=== PATIENT | male | born 1960 | race American Indian/Alaskan Native ===

== ENCOUNTER 2018-03-24 08:00 | Day surgery (SDC) | payer MEDICAID ==
[~2018-03-24 08:00] MED LIST: NACL 0.9% 1000 ML 1,000 ML IV SCH
--- NOTE | 2018-03-24 08:47 | Anesthesia Day of Surgery ---
Anesthesia Day of Surgery - Day of Surgery Patient Examined: Yes Patient H&P Reviewed: Yes Patient is NPO: Yes
--- NOTE | 2018-03-24 08:47 | Anesthesia Consultation ---
Anesthesia Consult and Med Hx Date of service: 03/24/18 - Airway Anesthetic Teeth Evaluation: Poor (loose tooth posterior left) ROM Head & Neck: Adequate Mental/Hyoid Distance: Adequate Mallampati Class: Class II Intubation Access Assessment: Probably Good - Pulmonary Exam CTA: Yes - Cardiac Exam Cardiac Exam: RRR - Pre-Operative Health Status ASA Pre-Surgery Classification: ASA3 Proposed Anesthetic Plan: MAC - Pulmonary Hx Smoking: Yes COPD: Yes (no home O2) - Cardiovascular System Hx Hypertension: Yes - Central Nervous System CVA: Yes - Endocrine Hx Liver Disease: Yes - Other Systems Hx Substance Use: Yes
[2018-03-24] MEDS ORDERED: DIPRIVAN 10 MG/ML IV ONE ×2 (09:02)
--- NOTE | 2018-03-24 10:50 | Short Stay Summary ---
Short Stay Documentation Date of service: 03/24/18 - History H&P: obtained from office - Allergies and Medications Current Medications: Allergies Penicillins Allergy (Verified 08/06/14 06:33) Angioedema Home Medications Medication Instructions Recorded Confirmed Last Taken Type Albuterol Sulfate [Ventolin HFA] 2 puff IH Q4H PRN #1 hfa.aer.ad 08/07/14 Unknown Rx Fluticasone/Salmeterol [Advair 1 puff IH BID #1 disk.w.dev 08/07/14 03/21/18 Unknown Rx Diskus 250-50 mcg] Ipratropium (Nf) [Atrovent HFA 2 puff IH Q6HR PRN #1 inha 08/07/14 03/21/18 Unknown Rx 17MCG/PUFF] amLODIPine [Norvasc] 10 mg PO DAILY #30 tablet 08/07/14 03/21/18 Unknown Rx ALBUTEROL Inhaler [Proair] 2 puff IH QID PRN 03/21/18 03/21/18 Unknown History Acetaminophen [Tylenol] 650 mg PO Q6HR PRN 03/21/18 03/21/18 Unknown History Benzonatate [Tessalon Perle] 100 mg PO TID 03/21/18 03/21/18 Unknown History Carvedilol 6.25 mg PO BID 03/21/18 03/21/18 Unknown History Cephalexin 500 mg PO TID 03/21/18 03/21/18 Unknown History Cyclobenzaprine HCl [Flexeril 5 MG 5 mg PO TID 03/21/18 03/21/18 Unknown History TAB] Furosemide [Lasix] 20 mg PO QDAY 03/21/18 03/21/18 Unknown History Ipratropium (Nf) [Atrovent] 0.02 puff IH Q6HR PRN 03/21/18 03/21/18 Unknown History Losartan [Cozaar] 1 tab PO DAILY 03/21/18 03/21/18 Unknown History Meloxicam [Mobic] 7.5 mg PO DAILY 03/21/18 03/21/18 Unknown History Naproxen [Naprosyn] 500 mg PO BID 03/21/18 03/21/18 Unknown History Ranitidine HCl [Zantac 300 MG TAB] 300 mg PO QPM 03/21/18 03/21/18 Unknown History Tamsulosin [Flomax] 0.4 mg PO QDAY 03/21/18 03/21/18 Unknown History Active Medications Sodium Chloride (Nacl 0.9% 1000 Ml) 1,000 mls @ 50 mls/hr IV DIRECT JOSEY Last Admin: 03/24/18 09:58 Dose: 50 mls/hr - Brief post op/procedure progress note Date of procedure: 03/24/18 Findings: see dictated report Estimated blood loss: none Pathology: list (antral biopsies for h.pylori) Specimen disposition: to lab Condition: stable - Disposition Condition at discharge: Good Disposition: DC-01 TO HOME OR SELFCARE - Discharge Diagnoses (1) Epigastric pain Status: Acute (2) Colon cancer screening Status: Acute Short Stay Discharge Plan Activity: other (no driving forf 24 hours) Weight Bearing Status: Weight Bear as Tolerated Follow up with: SANDY HERNANDEZ MD [Primary Care Provider] - 7 Days
--- NOTE | 2018-03-24 10:55 | Operative Report ---
Operative Report Operative Report: Date of procedure: 03/24/2018 Preprocedure diagnosis: Colon cancer screening Post procedure diagnosis: Normal study Procedure: Colonoscopy to the cecum Endoscopist: Dr. Moyer Anesthesia: Monitored anesthesia care per anesthesia department Estimated blood loss: 0 Medications: Monitored anesthesia care. See separate report by anesthesia for details. After careful discussion of the nature and purpose of the procedure as well as details of the technique risks benefits and alternatives the patient gave consent. Please see recent history and physical from the office. The patient was placed in the left lateral decubitus position and medicated per anesthesia. A rectal exam was performed sphincter tone was normal there were no masses palpable. The [employer] 570 scope was passed transanally and advanced under continuous direct vision without difficulty to the cecum. The colon was well prepared. The cecum was normal. The ascending colon was normal and on forward and retroflexed views. The transverse colon, descending colon, and sigmoid colon were normal. The rectum was normal on forward and retroflexed views. The procedure was well-tolerated overall and the patient was observed in recovery. Conclusions: Normal colonoscopy to the cecum. Plan: Repeat colonoscopy in 10 years, sooner if clinically indicated. Signed electronically: Praveen Moyer M.D.
--- NOTE | 2018-03-24 11:00 | Operative Report ---
Operative Report Operative Report: Date of procedure: 03/24/2018 Procedure:. Esophagogastroduodenoscopy with biopsies of the antrum for H. pylori. Preprocedure diagnosis: Epigastric pain Post procedure diagnosis: Multiple cratered duodenal bulb ulcers. Duodenal bulb deformity. Erosive antral gastritis. Hiatal hernia. Endoscopist: Dr. Moyer Anesthesia: Monitored anesthesia care per anesthesia department Medications: Propofol per anesthesia. Estimated blood loss: 0 After careful discussion of the nature and purpose of the procedure as well as details the technique risks benefits and alternatives consent was obtained. The patient was placed in the left lateral decubitus position and medicated per anesthesia. The tip of the [employer] 570 video scope was passed per orum under direct vision into the esophagus and advanced into the stomach and descending duodenum. The descending duodenum was normal. Duodenal bulb revealed deformity and multiple cratered ulcers from meters to 1 cm in size. The pylorus was symmetrical and normal. The scope was withdrawn into the stomach and the stomach then gently insufflated with air. The antrum revealed multiple punctate erosions. Biopsies were taken for H. pylori testing. The stomach was further insufflated and the scope was then retroflexed and partially withdrawn. The cardia, fundus, and body of the stomach were within normal limits and easily distensible.The scope was then withdrawn in the forward position. The esophagogastric junction was at 40 cm. A small hiatus hernia was present.. The esophageal body was normal throughout. The procedure was was well tolerated and the patient was observed in recovery. Impressions: Multiple cratered duodenal bulb ulcers. Erosive antral gastritis. Hiatal hernia. Plan: Begin omeprazole 40 mg daily. Discontinue all nonsteroidal anti- inflammatory medications. Await pathology. Office follow-up in 6 weeks. The patient will call in the interim regarding the pathology to treat H. pylori if present. Electronically signed: Praveen Moyer MD
[2018-03-24 11:40] VITALS: BP 148/92
== END 2018-03-24 11:50 | disposition home or self-care (01) ==
LOC: GIO 08:00
PROVIDERS: ATTEND Internal Medicine Gastroenterology
DX: Z12.11 Encounter for screening for malignant neoplasm of colon (principal); K29.50 Unspecified chronic gastritis without bleeding; B96.81 Helicobacter pylori [H. pylori] as the cause of diseases classified elsewhere; K26.9 Duodenal ulcer, unspecified as acute or chronic, without hemorrhage or perforation; K44.9 Diaphragmatic hernia without obstruction or gangrene; K21.9 Gastro-esophageal reflux disease without esophagitis; B19.20 Unspecified viral hepatitis C without hepatic coma; I11.0 Hypertensive heart disease with heart failure; I50.9 Heart failure, unspecified; J44.9 Chronic obstructive pulmonary disease, unspecified; Z87.891 Personal history of nicotine dependence; Z88.0 Allergy status to penicillin; Z95.810 Presence of automatic (implantable) cardiac defibrillator; Z98.890 Other specified postprocedural states; Z86.73 Personal history of transient ischemic attack (TIA), and cerebral infarction without residual deficits
CPT/HCPCS: 43239; 45378; 88305; 88342; J2704; J7030

== ENCOUNTER 2019-03-01 14:53 | Inpatient (IN) | payer MEDICAID, OTHER ==
[2019-03-01] MEDS ORDERED: ASPIRIN PO ONE (15:31)
[2019-03-01 15:53] LABS: Basophils # (Auto) 0.1 K/mm3 (0.0-0.1); Basophils % (Auto) 0.7 % (0.0-1.8); Eosinophils # (Auto) 0.1 K/mm3 (0.0-0.4); Eosinophils % (Auto) 1.9 % (0.0-4.3); Hematocrit 39.8 % (35.5-45.6); Hemoglobin 13.7 gm/dl (11.8-15.2); Lymphocytes # (Auto) 1.6 K/mm3 (1.2-5.4); Lymphocytes % (Auto) 21.8 % (13.4-35.0); Mean Corpuscular HGB Conc 34 % (32-34); Mean Corpuscular Volume 91 fl (84-94); Monocytes # (Auto) 0.7 K/mm3 (0.0-0.8); Monocytes % (Auto) 9.5 % (0.0-7.3); Platelet Count 189 K/mm3 (140-440); Red Blood Count 4.36 M/mm3 (3.65-5.03); Red Cell Distribution Width 13.8 % (13.2-15.2)
[2019-03-01 16:04] LABS: BUN/Creatinine Ratio 16; Blood Urea Nitrogen 22 mg/dL (9-20); Calcium 8.3 mg/dL (8.4-10.2); Hemolysis Index 159
--- NOTE | 2019-03-01 16:05 | XRay Report ---
PROCEDURE: XR CHEST 1V AP TECHNIQUE: Chest radiograph single view. HISTORY: Chest Pain COMPARISONS: None . FINDINGS: Heart: Normal. Mediastinum/Vessels: Normal. Lungs/Pleural space: No infiltrate, effusion, or pneumothorax. Bony thorax: No acute osseous abnormality. Life support devices: Left AICD. IMPRESSION: No radiographic evidence of acute cardiopulmonary abnormality. This document is electronically signed by Sheri Barreto MD., March 01 2019 04:03:21 PM ET
--- NOTE | 2019-03-01 17:11 | Emergency Department Report ---
HPI - General Chief Complaint: Chest Pain Time Seen by Provider: 03/01/19 16:49 - HPI HPI: Room 8 The patient is a 59-year-old male presenting with a chief complaint of dizziness and chest pain. Patient states his intermittent left-sided chest pain rating to his left shoulder and back since yesterday. Patient described the pain as sharp in nature associated with shortness of breath, diaphoresis and nausea without vomiting. The patient states when he awakened this morning he felt somewhat dizzy. The patient states he has a heart monitor and received a call from his order administrator today requesting him to come into the office for evaluation. Yanira mclaughlin states some of his family members got into an altercation today prompting him to call police. The patient was brought in to the ED in police custody as he has an outstanding warrant Location: Chest Duration: [See above] Quality: Sharp Severity: [See above] Modifying factors: [see above] Context: [see above] Mode of transportation: [not driving] ED Past Medical Hx - Past Medical History Previous Medical History?: Yes Hx Hypertension: Yes Hx CVA: Yes Hx Congestive Heart Failure: Yes Hx GERD: Yes (GERD) Hx Liver Disease: Yes Hx COPD: Yes (no home O2) Additional medical history: pancreatitis / fibrosis of liver - Surgical History Past Surgical History?: Yes Hx Internal Defibrillator: Yes Hx Cholecystectomy: Yes - Family History Family history: no significant - Social History Smoking Status: Former Smoker (none 2 years) Substance Use Type: None (denies illicit drug use) - Medications Home Medications: Home Medications Medication Instructions Recorded Confirmed Last Taken Type Albuterol Sulfate [Ventolin HFA] 2 puff IH Q4H PRN #1 hfa.aer.ad 08/07/14 03/21/18 Unknown Rx Fluticasone/Salmeterol [Advair 1 puff IH BID #1 disk.w.dev 08/07/14 03/21/18 Unknown Rx Diskus 250-50 mcg] Ipratropium (Nf) [Atrovent HFA 2 puff IH Q6HR PRN #1 inha 08/07/14 03/21/18 U nknown Rx 17MCG/PUFF] amLODIPine [Norvasc] 10 mg PO DAILY #30 tablet 08/07/14 03/21/18 Unknown Rx ALBUTEROL Inhaler (OR & NICU) 2 puff IH QID PRN 03/21/18 03/21/18 Unknown History [ProAir HFA Inhaler] Acetaminophen [Acetaminophen TAB] 650 mg PO Q6HR PRN 03/21/18 03/21/18 Unknown History Benzonatate [Tessalon Perle] 100 mg PO TID 03/21/18 03/21/18 Unknown History Carvedilol 6.25 mg PO BID 03/21/18 03/21/18 Unknown History Cyclobenzaprine HCl [Flexeril 5 MG 5 mg PO TID 03/21/18 03/21/18 Unknown History TAB] Furosemide [Lasix TAB] 20 mg PO QDAY 03/21/18 03/21/18 Unknown History Ipratropium (Nf) [Atrovent HFA 0.02 puff IH Q6HR PRN 03/21/18 03/21/18 Unknown History 17MCG/PUFF] Losartan [Cozaar] 1 tab PO DAILY 03/21/18 03/21/18 Unknown History Tamsulosin [Flomax] 0.4 mg PO QDAY 03/21/18 03/21/18 Unknown History cephALEXin [Cephalexin] 500 mg PO TID 03/21/18 03/21/18 Unknown History ED Review of Systems ROS: Stated complaint: CHEST PAIN Other details as noted in HPI Constitutional: diaphoresis Eyes: denies: eye pain ENT: denies: throat pain Respiratory: shortness of breath Cardiovascular: chest pain Endocrine: no symptoms reported Gastrointestinal: nausea. denies: vomiting Genitourinary: denies: dysuria Musculoskeletal: denies: back pain Neurological: other (dizziness). denies: headache Physical Exam - Physical Exam Vital Signs: Vital Signs 03/01/19 15:30 Pulse Rate 92 H Respiratory 18 Rate Blood Pressure 109/73 O2 Sat by Pulse 99 Oximetry Physical Exam: GENERAL: The patient is well-developed well-nourished male lying on stretcher not appear to be in acute distress. [] HEENT: Normocephalic. Atraumatic. Extraocular motions are intact. Patient has moist mucous membranes. NECK: Supple. Trachea midline CHEST/LUNGS: Clear to auscultation. There is no respiratory distress noted. HEART/CARDIOVASCULAR: Regular. There is no tachycardia. There is no gallop rub or murmur. ABDOMEN: Abdomen is soft, nontender. Patient has normal bowel sounds. There is no abdominal distention. SKIN: There is no rash. There is no edema. There is no diaphoresis. NEURO: The patient is awake, alert, and oriented. The patient is cooperative. The patient has normal speech MUSCULOSKELETAL: There is no evidence of acute injury. ED Course Vital Signs 03/01/19 15:30 Pulse Rate 92 H Respiratory 18 Rate Blood Pressure 109/73 O2 Sat by Pulse 99 Oximetry ED Medical Decision Making - Lab Data Result diagrams: 03/01/19 15:34 03/01/19 15:34 - EKG Data -: EKG Interpreted by Me EKG shows normal: sinus rhythm Rate: normal - EKG Data When compared to previous EKG there are: previous EKG unavailable Interpretation: other (no ischemic changes seen) - Radiology Data Radiology results: report reviewed (chest x-ray), image reviewed (chest x-ray) interpreted by me: Chest x-ray-no focal infiltrates, no pneumothorax [facility] [address] [place] [address] XRay Report Signed Patient: VERNELL WU MR#: [id number] : 1960 Acct:[id number] Age/Sex: 59 / M ADM Date: 03/01/19 Loc: ED Attending Dr: Ordering Physician: GIOVANNA BAZZI MD Date of Service: 03/01/19 Procedure(s): XR chest 1V ap Accession Number(s): [id number] cc: GIOVANNA BAZZI MD Fluoro Time In Minutes: PROCEDURE: XR CHEST 1V AP TECHNIQUE: Chest radiograph single view. HISTORY: Chest Pain COMPARISONS: None . FINDINGS: Heart: Normal. Mediastinum/Vessels: Normal. Lungs/Pleural space: No infiltrate, effusion, or pneumothorax. Bony thorax: No acute osseous abnormality. Life support devices: Left AICD. IMPRESSION: No radiographic evidence of acute cardiopulmonary abnormality. This document is electronically signed by Sheri Barreto MD., March 01 2019 04:03:21 PM ET Transcribed By: [facility] Dictated By: SHERI BARRETO M.D. Electronically Authenticated By: SHERI BARRETO M.D. Signed Date/Time: 03/01/19 160 DD/ 160 TD/TT: 03/01/19 1601 - Differential Diagnosis ACS, pericarditis, GERD Critical care attestation.: If time is entered above; I have spent that time in minutes in the direct care of this critically ill patient, excluding procedure time. ED Disposition Clinical Impression: Chest pain Disposition: OP ADMIT IP TO THIS HOSP Is pt being admited?: Yes Does the pt Need Aspirin: Yes Condition: Fair Instructions: Chest Pain (ED) Time of Disposition: 17:17 (hospitalist paged (Dr Whitaker))
[2019-03-01] MEDS ORDERED: NITRO-BID 2% TP ONE (17:18)
[2019-03-01] MEDS ORDERED: SUBLIMAZE IV ONE (17:18)
[2019-03-01] MEDS ORDERED: ZOFRAN IV ONE (17:18)
--- NOTE | 2019-03-01 17:39 | History and Physical Report ---
History of Present Illness Chief complaint: My chest hurts, im short of breath, and sometimes i get dizzy History of present illness: 59 YO Male with HTN, CHF,CVA, GERD, COPD, Liver Fibrosis presents to ED for evaluation. Pt states that he has experienced pain in his chest over the past 1 day with worsening symptoms over the past 8 hours. Pt states that pain is substernal, radiates to his left shoulder, and left back, sharp, not worsened with exertion, not relieved with rest, associated with shortness of breath,as well as diaphoresis and nausea. EMS notified and patient transported to [facility]. Pt seen and evaluated in ED and found to have Angina as well as symptoms consistent with CHF decompensation. Pt admitted to telemetry. Cardiology consulted in ED. No reports of fever, chills, palpitations, syncope, productive cough, skin rash, unilateral leg swelling, calf pain, hemoptysis, individual/family history of D VT/PE/Blood Clotting Disorders. Past History Past Medical History: COPD, GERD, heart failure, other (Liver disease,) Past Surgical History: cholecystectomy, Other (ICD Placement) Social history: , lives with family Family history: hypertension Medications and Allergies Allergies Allergy/AdvReac Type Severity Reaction Status Date / Time Penicillins Allergy Angioedema Verified 08/06/14 06:33 Home Medications Medication Instructions Recorded Confirmed Last Taken Type Albuterol Sulfate [Ventolin HFA] 2 puff IH Q4H PRN #1 hfa.aer.ad 08/07/14 03/21/18 Unknown Rx Fluticasone/Salmeterol [Advair 1 puff IH BID #1 disk.w.dev 08/07/14 03/21/18 Unknown Rx Diskus 250-50 mcg] Ipratropium (Nf) [Atrovent HFA 2 puff IH Q6HR PRN #1 inha 08/07/14 03/21/18 Unknown Rx 17MCG/PUFF] amLODIPine [Norvasc] 10 mg PO DAILY #30 tablet 08/07/14 03/21/18 Unknown Rx ALBUTEROL Inhaler (OR & NICU) 2 puff IH QID PRN 03/21/18 03/21/18 Unknown History [ProAir HFA Inhaler] Acetaminophen [Acetaminophen TAB] 650 mg PO Q6HR PRN 03/21/18 03/21/18 Unknown History Benzonatate [Tessalon Perle] 100 mg PO TID 03/21/18 03/21/18 Unknown History Carvedilol 6.25 mg PO BID 03/21/18 03/21/18 Unknown History Cyclobenzaprine HCl [Flexeril 5 MG 5 mg PO TID 03/21/18 03/21/18 Unknown History TAB] Furosemide [Lasix TAB] 20 mg PO QDAY 03/21/18 03/21/18 Unknown History Ipratropium (Nf) [Atrovent HFA 0.02 puff IH Q6HR PRN 03/21/18 03/21/18 Unknown History 17MCG/PUFF] Losartan [Cozaar] 1 tab PO DAILY 03/21/18 03/21/18 Unknown History Tamsulosin [Flomax] 0.4 mg PO QDAY 03/21/18 03/21/18 Unknown History cephALEXin [Cephalexin] 500 mg PO TID 03/21/18 03/21/18 Unknown History Review of Systems Constitutional: no weight loss, no weight gain, no fever, no chills Ears, nose, mouth and throat: no ear pain, no ear discharge, no tinnitis, no decreased hearing, no nose pain, no nasal congestion, no sinus pressure Cardiovascular: chest pain, shortness of breath, decreased exercise tolerance, no palpitations, no rapid/irregular heart beat, no syncope Respiratory: no cough, no cough with sputum, no excessive sputum, no hemoptysis Gastrointestinal: no nausea, no vomiting, no diarrhea, no constipation, no change in bowel habits Genitourinary Male: no hematuria, no discharge, no urinary frequency, no urinary hesitancy Rectal: no pain, no incontinence, no bleeding Musculoskeletal: no neck stiffness, no neck pain, no shooting arm pain, no arm numbness/tingling Integumentary: no rash, no pruritis, no redness, no sores, no wounds, no jaundice Neurological: no transient paralysis, no paralysis, no weakness, no parathesias, no numbness, no tingling, no seizures Psychiatric: no anxiety, no memory loss, no change in sleep habits, no sleep disturbances, no insomnia, no hypersomnia, no change in appetite Endocrine: no cold intolerance, no heat intolerance, no polyphagia, no excessive thirst, no nocturia, no excessive sweating Hematologic/Lymphatic: no easy bruising, no easy bleeding Allergic/Immunologic: no allergic rhinitis, no wheezing Exam - Constitutional Vitals: Temp Pulse Resp BP Pulse Ox 92 H 18 109/73 99 03/01/19 15:30 03/01/19 15:30 03/01/19 15:30 03/01/19 15:30 General appearance: Present: no acute distress, well-nourished - EENT Eyes: Present: PERRL ENT: hearing intact, clear oral mucosa - Neck Neck: Present: supple, normal ROM - Respiratory Respiratory effort: normal Respiratory: bilateral: CTA - Cardiovascular Heart Sounds: Present: S1 & S2. Absent: rub, click - Extremities Extremities: pulses symmetrical, No edema Peripheral Pulses: within normal limits - Abdominal General gastrointestinal: Present: soft, non-tender, non-distended, normal bowel sounds Male genitourinary: Present: normal - Integumentary Integumentary: Present: clear, warm, dry - Musculoskeletal Musculoskeletal: gait normal, strength equal bilaterally - Psychiatric Psychiatric: appropriate mood/affect, intact judgment & insight - Neurologic Neurologic: CNII-XII intact, moves all extremities Results - Labs CBC & Chem 7: 03/01/19 15:34 03/01/19 15:34 Labs: Abnormal lab results 03/01/19 03/01/19 Range/Units 15:34 15:34 Kinney % (Auto) 9.5 H (0.0-7.3) % Chloride 111.2 H (98-107) mmol/L Carbon Dioxide 18 L (22-30) mmol/L BUN 22 H (9-20) mg/dL Calcium 8.3 L (8.4-10.2) mg/dL Assessment and Plan - Patient Problems (1) Angina at rest Current Visit: Yes Status: Acute Plan to address problem: Admit to telemetry, serial cardiac enzymes, ekg, telemetry, morphine, supplemental oxygen, nitro, aspirin, stress test, cardiology consulted in ED. (2) Diastolic CHF Current Visit: Yes Status: Acute Plan to address problem: Admit to telemetry, cardiology consulted in ED, Echo, thyroid panel, BNP, strict I/O, daily weight, chest x ray, afterload reduction, diuresis, (3) COPD (chronic obstructive pulmonary disease) Current Visit: Yes Status: Acute Qualifiers: Chronic bronchitis type: mixed simple and mucopurulent Plan to address problem: Supplemental oxygen, nebulizer therapy, NIPPV as clinically indicated, (4) GERD (gastroesophageal reflux disease) Current Visit: Yes Status: Acute Qualifiers: Esophagitis presence: without esophagitis Qualified Code(s): K21.9 - Gastro-esophageal reflux disease without esophagitis Plan to address problem: PPI therapy (5) DVT prophylaxis Current Visit: Yes Status: Acute Plan to address problem: SCD to BLE while in bed,
[2019-03-01] MEDS ORDERED: BABY ASPIRIN PO STA (17:42)
[2019-03-01] MEDS ORDERED: TYLENOL PO PRN ×2 (17:42→17:45)
[2019-03-01] MEDS ORDERED: NITROSTAT SL PRN (17:42)
[2019-03-01] MEDS ORDERED: PROVENTIL IH PRN ×2 (17:42→22:00)
[2019-03-01] MEDS ORDERED: MORPHINE IV PRN (17:42)
[2019-03-01] MEDS ORDERED: SODIUM CHLORIDE FLUSH SYRINGE 10 ML IV PRN ×2 (17:42)
[2019-03-01] MEDS ORDERED: ZOFRAN IV PRN (17:42)
[2019-03-01] MEDS ORDERED: IPRATROPIUM IH PRN (17:45)
[2019-03-01 18:49] LABS: Chol/HDL Ratio 4.32 %
[2019-03-01 19:01] LABS: Free T4 (Free Thyroxine) 1.56 ng/dL (0.76-1.46)
[2019-03-01] MEDS: BROVANA NEBU IH SCH (20:00)
[2019-03-01] MEDS ORDERED: NON-FORMULARY (Cyclobenzaprine Hcl [Flexeril 5 Mg Tab] 5 MG) PO SCH (20:00)
[2019-03-01] MEDS: PULMICORT IH SCH (20:00)
[2019-03-01] MEDS: COREG PO SCH (21:35)
[2019-03-01] MEDS: TESSALON PERLES PO SCH (21:35)
[2019-03-01] MEDS: PEPCID PO SCH (21:35)
[2019-03-01] MEDS: FLEXERIL PO SCH (21:35)
[2019-03-01] MEDS: SODIUM CHLORIDE FLUSH SYRINGE 10 ML IV SCH (21:36)
[2019-03-01] MEDS ORDERED: NON-FORMULARY (Fluticasone/Salmeterol [Advair Diskus 250-50 Mcg] 1 PUFF) IH SCH (22:00)
[2019-03-02] MEDS: PULMICORT IH SCH (08:44)
[2019-03-02] MEDS: BROVANA NEBU IH SCH (08:44)
[2019-03-02] MEDS: TESSALON PERLES PO SCH ×2 (08:50→13:42)
[2019-03-02] MEDS: FLEXERIL PO SCH ×2 (08:50→13:42)
[2019-03-02] MEDS: COREG PO SCH (09:06)
[2019-03-02] MEDS: PEPCID PO SCH (09:06)
[2019-03-02] MEDS: SODIUM CHLORIDE FLUSH SYRINGE 10 ML IV SCH (09:07)
[2019-03-02] MEDS ORDERED: FLOMAX PO SCH (10:00)
[2019-03-02] MEDS ORDERED: NORVASC PO SCH (10:00)
[2019-03-02] MEDS ORDERED: COZAAR PO SCH (10:00)
[2019-03-02] MEDS ORDERED: LEXISCAN IV ONE (11:57)
[2019-03-02 13:58] VITALS: BP 117/82
--- NOTE | 2019-03-02 14:00 | Consultation ---
History of Present Illness Consult date: 03/02/19 Consult reason: chest pain History of present illness: Patient is a 59-year-old man with a poorly documented cardiac history which i ncludes a cardiac defibrillator implanted a little over a year ago at [facility]. His primary journeyman molder is Dr. Chavez. The patient states that his left ventricular ejection fraction was 20-25%, and he has had a previous stress test but has never had a cardiac catheterization all coronary intervention, perhaps suggesting a nonischemic cardiomyopathy. He is admitted at this time with atypical, nonexertional, poorly characterized chest pain. ECG is sinus rhythm, left axis deviation, nonspecific IVCD and a possible old anterior myocardial infarction. There are no acute ischemic c hanges. Chest x-ray revealed normal size cardiac silhouette, dual-chamber ICD in situ, but clear lungs with no infiltrates and no interstitial edema or heart failure. Today, he underwent a Lexiscan thallium stress test ordered by the medical service. Perfusion images were normal, with no significant defects. Left ventricular ejection fraction was 54% on gated SPECT, but echocardiogram is pending for more optimal left ventricular systolic function assessment. Past History Past Medical History: COPD, GERD, heart failure, other (Liver disease,) Past Surgical History: cholecystectomy, Other (ICD Placement) Social history: , lives with family Family history: hypertension Medications and Allergies Allergies Allergy/AdvReac Type Severity Reaction Status Date / Time Penicillins Allergy Angioedema Verified 08/06/14 06:33 Home Medications Medication Instructions Recorded Confirmed Last Taken Type Albuterol Sulfate [Ventolin HFA] 2 puff IH Q4H PRN #1 hfa.aer.[email or web address] 08/07/14 0 03/21/18 Unknown Rx Fluticasone/Salmeterol [Advair 1 puff IH BID #1 disk.w.dev 08/07/14 03/21/18 Un known Rx Diskus 250-50 mcg] Ipratropium (Nf) [Atrovent HFA 2 puff IH Q6HR PRN #1 inha 08/07/14 03/21/18 Unknown Rx 17MCG/PUFF] amLODIPine [Norvasc] 10 mg PO DAILY #30 tablet 08/07/14 03/21/18 Unknown Rx ALBUTEROL Inhaler (OR & NICU) 2 puff IH QID PRN 03/21/18 03/21/18 Unknown Histo ry [ProAir HFA Inhaler] Acetaminophen [Acetaminophen TAB] 650 mg PO Q6HR PRN 03/21/18 03/21/18 Unknown History Benzonatate [Tessalon Perle] 100 mg PO TID 03/21/18 03/21/18 Unknown History Carvedilol 6.25 mg PO BID 03/21/18 03/21/18 Unknown History Cyclobenzaprine HCl [Flexeril 5 MG 5 mg PO TID 03/21/18 03/21/18 Unknown History TAB] Furosemide [Lasix TAB] 20 mg PO QDAY 03/21/18 03/21/18 Unknown History Ipratropium (Nf) [Atrovent HFA 0.02 puff IH Q6HR PRN 03/21/18 03/21/18 Unknown History 17MCG/PUFF] Losartan [Cozaar] 1 tab PO DAILY 03/21/18 03/21/18 Unknown History Tamsulosin [Flomax] 0.4 mg PO QDAY 03/21/18 03/21/18 Unknown History cephALEXin [Cephalexin] 500 mg PO TID 03/21/18 03/21/18 Unknown History Active Meds: Active Medications Acetaminophen (Tylenol) 650 mg PO Q6H PRN PRN Reason: Pain, MILD Albuterol (Proventil) 2.5 mg IH Q4HRT PRN PRN Reason: Shortness Of Breath Amlodipine Besylate (Norvasc) 10 mg PO DAILY [facility] Last Admin: 03/02/19 09:06 Dose: 10 mg Documented by: Arformoterol Tartrate (Brovana Nebu) 15 mcg IH Q12HRT [facility] Last Admin: 03/02/19 08:44 Dose: 15 mcg Documented by: Benzonatate (Tessalon Perles) 100 mg PO TID [facility] Last Admin: 03/02/19 13:42 Dose: 100 mg Documented by: Budesonide (Pulmicort) 0.5 mg IH Q12HRT [facility] Last Admin: 03/02/19 08:44 Dose: 0.5 mg Documented by: Carvedilol (Coreg) 6.25 mg PO BID [facility] Last Admin: 03/02/19 09:06 Dose: 6.25 mg Documented by: Cyclobenzaprine HCl (Flexeril) 5 mg PO TID [facility] Last Admin: 03/02/19 13:42 Dose: 5 mg Documented by: Enoxaparin Sodium (Lovenox) 40 mg SUB-Q QDAY@2200 [facility] Famotidine (Pepcid) 20 mg PO BID [facility] Last Admin: 03/02/19 09:06 Dose: 20 mg Documented by: Losartan Potassium (Cozaar) 100 mg PO DAILY [facility] Last Admin: 03/02/19 09:06 Dose: 100 mg Documented by: Morphine Sulfate (Morphine) 2 mg IV Q4H PRN PRN Reason: Pain, Moderate (4-6) Nitroglycerin (Nitrostat) 0.4 mg SL Q5M PRN PRN Reason: Chest Pain Ondansetron HCl (Zofran) 4 mg IV Q8H PRN PRN Reason: Nausea And Vomiting Sodium Chloride (Sodium Chloride Flush Syringe 10 Ml) 10 ml IV BID [facility] Last Admin: 03/02/19 09:07 Dose: 10 ml Documented by: Sodium Chloride (Sodium Chloride Flush Syringe 10 Ml) 10 ml IV PRN PRN PRN Reason: LINE FLUSH Tamsulosin HCl (Flomax) 0.4 mg PO QDAY [facility] Last Admin: 03/02/19 09:06 Dose: 0.4 mg Documented by: Review of Systems Cardiovascular: chest pain, shortness of breath, no orthopnea, no palpitations, no rapid/irregular heart beat, no edema, no syncope, no lightheadedness Physical Examination Vital Signs Pulse Resp BP Pulse Ox 92 H 18 109/73 99 03/01/19 15:30 03/01/19 15:30 03/01/19 15:30 03/01/19 15:30 General appearance: no acute distress HEENT: Positive: PERRL Neck: Positive: neck supple Cardiac: Positive: Reg Rate and Rhythm Lungs: Positive: clear to auscultation Neuro: Positive: Grossly Intact Abdomen: Positive: Soft Male genitourinary: Positive: deferred Skin: Positive: Clear Extremities: Absent: edema Results 03/01/19 15:34 03/01/19 15:34 Lipids 03/01/19 Range/Units 18:01 Triglycerides 114 (2-149) mg/dL Cholesterol 160 (50-199) mg/dL HDL Cholesterol 37 L (40-59) mg/dL Cholesterol/HDL Ratio 4.32 % CBC 03/01/19 Range/Units 15:34 WBC 7.4 (4.5-11.0) K/mm3 RBC 4.36 (3.65-5.03) M/mm3 Hgb 13.7 (11.8-15.2) gm/dl Hct 39.8 (35.5-45.6) % Plt Count 189 (140-440) K/mm3 Lymph # 1.6 (1.2-5.4) K/mm3 [place] # 0.7 (0.0-0.8) K/mm3 Eos # 0.1 (0.0-0.4) K/mm3 Baso # 0.1 (0.0-0.1) K/mm3 Comprehensive Metabolic Panel 03/01/19 Range/Units 15:34 Sodium 141 (137-145) mmol/L Potassium 4.5 (3.6-5.0) mmol/L Chloride 111.2 H (98-107) mmol/L Carbon Dioxide 18 L (22-30) mmol/L BUN 22 H (9-20) mg/dL Creatinine 1.4 (0.8-1.5) mg/dL Glucose 91 (75-100) mg/dL Calcium 8.3 L (8.4-10.2) mg/dL EKG interpretations - Telemetry EKG Rhythm: Sinus Rhythm Assessment and Plan - Patient Problems (1) Chest pain Current Visit: Yes Status: Acute Plan to address problem: Patient presented with atypical chest pain, cardiac enzymes are normal. A Lexiscan thallium stress test was normal. Echocardiogram is pending for left ventricular function assessment. Otherwise, conservative cardiac approach to management.
--- NOTE | 2019-03-02 14:44 | Discharge Summary ---
Providers - Providers Date of Admission: 03/01/19 17:43 Date of discharge: 03/02/19 Attending physician: CLEMENCIA AGUILAR 03/01/19 Consult to Cardiac Rehabilitation [CONS] Routine Reason For Exam: Phase I 03/01/19 17:43 Consult to Cardiology [CONS] Routine Consulting Provider: GABY MACKAY Reason For Exam: angina/chf Primary care physician: [facility], Hospitalization Reason for admission: Chest pain Condition: Fair Pertinent studies: CXR exercise stress test Hospital course: Patient is a 59-year-old man with a history of cardiac defibrillator implanted a little over a year ago at [facility], ejection fraction was 20-25% by history, never had a cardiac catheterization or coronary intervention, perhaps suggesting a nonischemic cardiomyopathy admitted at this time with atypical, nonexertional, poorly characterized chest pain. ECG is sinus rhythm, left axis deviation, nonspecific IVCD and a possible old anterior myocardial infarction. Chest x-ray revealed normal size cardiac silhouette, dual-chamber ICD in situ, but clear lungs with no infiltrates and no interstitial edema or heart failure. Today, he underwent a Lexiscan thallium stress test ordered by the medical service. Perfusion images were normal, with no significant defects. Left ventricular ejection fraction was 54% on gated SPECT. 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 Patient was discharged home in stable condition. Discharge diagnosis: Atypical chest pain, likely due to GERD COPD, stable GERD, cont PPI Chronic systolic heart failure, stable, compensated Disposition: DC-01 TO HOME OR SELFCARE Time spent for discharge: 34 minutes Core Measure Documentation - Palliative Care Palliative Care/ Comfort Measures: Not Applicable - Core Measures Any of the following diagnoses?: none Exam - Physical Exam Narrative exam: General appearance: no acute distress HEENT: Positive: PERRL Neck: Positive: neck supple Cardiac: Positive: Reg Rate and Rhythm Lungs: Positive: clear to auscultation Neuro: Positive: Grossly Intact Abdomen: Positive: Soft Skin: Positive: Clear Extremities: Absent: edema - Constitutional Vitals: Temp Pulse Resp BP Pulse Ox 97.5 F L 77 18 117/82 99 03/02/19 08:19 03/02/19 09:03 03/02/19 09:03 03/02/19 12:30 03/02/19 08:49 Plan Activity: advance as tolerated Weight Bearing Status: Non-Weight Bearing Diet: low fat, low salt Follow up with: LUZ ELENA CHERRY MD [Primary Care Provider] - 7 Days Forms: Work/School Release Form Prescriptions: Pantoprazole [Protonix] 40 mg PO QDAY #30 tablet
[2019-03-02] MEDS ORDERED: LOVENOX SUB-Q SCH (22:00)
--- NOTE | 2019-03-03 05:10 | Treadmill Report ---
THALLIUM STRESS TEST LEFT VENTRICLE: Left ventricular chamber size is within normal spread. Perfusion study demonstrates evidence of mild diaphragmatic attenuation artifact; otherwise, homogeneous uptake of the tracer in all segments, no significant defects identified. Gated analysis demonstrates normal left ventricular systolic function, ejection fraction of 61%. CONCLUSION: Normal myocardial perfusion study. [facility]# [id number] [place]/NTS
== END 2019-03-02 18:35 | disposition home or self-care (01) | DRG 313 ==
LOC: ED 14:53 → EEVIPCON 14:53 → 4A 17:43
PROVIDERS: ADMIT Internal Medicine; ATTEND Internal Medicine
DX: R07.89 Other chest pain (principal); I50.32 Chronic diastolic (congestive) heart failure; I11.0 Hypertensive heart disease with heart failure; K21.9 Gastro-esophageal reflux disease without esophagitis; J44.9 Chronic obstructive pulmonary disease, unspecified; Z86.73 Personal history of transient ischemic attack (TIA), and cerebral infarction without residual deficits; Z82.49 Family history of ischemic heart disease and other diseases of the circulatory system; Z90.49 Acquired absence of other specified parts of digestive tract; Z88.0 Allergy status to penicillin; Z79.51 Long term (current) use of inhaled steroids; Z79.899 Other long term (current) drug therapy; Z95.810 Presence of automatic (implantable) cardiac defibrillator
CPT/HCPCS: 36415; 71045; 78452; 80048; 80061; 83735; 83880; 84439; 84443; 84484; 85025; 85379; 93005; 93010; 93017; 94640; G0378; A9502; J2405; J2785; J3010